=== PATIENT | female | born 1965 | race Caucasian/White ===

== ENCOUNTER 2016-09-04 09:49 | Emergency (ER) | payer OTHER ==
[~2016-09-04] VITALS: Ht 160 cm; Wt 81.8 kg
[~2016-09-04 09:49] MED LIST: ACET500C5 PO; ALBU18HF INHALATION; AMLO2.5T78 PO; AMO500 PO; ATEN100T PO; BUS5 PO; HYD25 PO; ISOS10TA2 PO; LANT3I SC; LINA5TAB PO; LOSA25TA47 PO; NAPR-260 PO; NOVO3I SC; OMEG1CAP55 PO; PANT40TA4 PO; PRAV80TA27 PO; SPIR25TA76 PO
[2016-09-04 10:22] VITALS: Ht 160 cm; Wt 81.8 kg
[2016-09-04] MEDS ORDERED: KETOROLAC 30 MG INJ IM STA (12:02)
[2016-09-04] MEDS ORDERED: PRED20TA PO (12:20)
[2016-09-04] MEDS ORDERED: IBUP-1542 PO (12:20)
--- NOTE | 2016-09-04 12:28 | ERD ---
ER Documentation Chief Complaint Date/Time DATE: 09/04/16 TIME: 12:24 Chief Complaint SORE THROAT HPI This is a 51-year-old female who presents to the emergency department today complaining of sore throat for the past 3 days. Patient states she was seen here last month and was given a prescription for antibiotics and took all of the pills. She also states that she was given a shot for pain. States that her symptoms did improve but now have returned. Dates she is able to eat for her sore throat is worse at night. Denies any fevers or cough. ROS All systems reviewed and are negative except as per history of present illness. Medications Home Meds Active Scripts Prednisone* (Prednisone*) 20 Mg Tab, 40 MG PO DAILY for 4 Days, TAB Prov:RAMA MARCH PA-C 09/04/16 Ibuprofen* (Motrin*) 600 Mg Tab, 600 MG PO Q6, #30 TAB Prov:RAMA MARCH PA-C 09/04/16 Naproxen* (Naprosyn*) 500 Mg Tablet, 500 MG PO BID Y for PAIN AND/OR INFLAMMATION, #30 TAB Prov:FIDE MIN MD 08/03/16 Acetaminophen* (Tylophen*) 500 Mg Capsule, 1 CAP PO Q6H Y for PAIN AND OR ELEVATED TEMP, #20 CAP Prov:ODELL NAVA PA-C 08/02/16 Amoxicillin* (Amoxicillin*) 500 Mg Cap, 500 MG PO TID for 10 Days, CAP Prov:ODELL NAVA PA-C 08/02/16 Hydrochlorothiazide* (Hydrochlorothiazide*) 25 Mg Tab, 25 MG PO DAILY@06 for 30 Days, TAB Prov:CHESTER,IRVING V. COY 04/29/16 Insulin Aspart* (Novolog Insulin Pen*) 100 Unit/Ml Soln, 26 UNIT SC WITH MEALS for 30 Days Prov:CHESTER,IRVING VLorna CESPEDES 04/29/16 Insulin Glargine* (Lantus*) 100 Unit/Ml Soln, 32 UNIT SC BID for 30 Days Prov:CHESTER,IRVING V. CLUTCH ASSEMBLER 04/29/16 Spironolactone* (Aldactone*) 25 Mg Tablet, 75 MG PO DAILY@06 for 30 Days, TAB Prov:CHESTER,IRVING VLorna CLUTCH ASSEMBLER 04/29/16 Losartan Potassium* (Cozaar*) 25 Mg Tablet, 100 MG PO DAILY for 30 Days, TAB Prov:IRVING CHESTER NP 04/29/16 Amlodipine Besylate* (Amlodipine Besylate*) 2.5 Mg Tablet, 5 MG PO DAILY, #30 TAB Prov:LOVE MURILLO NP 04/27/16 [place]-3/Dha/Epa/Fish Oil (FISH OIL EC 1,000 MG SOFTGEL) 1 Each Capsule.dr, 2000 MG PO BID for 30 Days Prov:LOVE MURILLO NP 04/27/16 Linagliptin (TRADJENTA) 5 Mg Tablet, 5 MG PO DAILY for 30 Days, TAB Prov:LOVE MURILLO NP 04/27/16 Pantoprazole* (Pantoprazole*) 40 Mg Tabec, 40 MG PO DAILY@06 for 14 Days, BOT Prov:YIN LERNER MD 10/05/15 Isosorbide Dinitrate* (Isordil*) 10 Mg Tab, 10 MG PO TID for 28 Days, TAB Prov:YIN LERNER MD 10/05/15 Albuterol Sulfate* (Ventolin HFA*) 18 Gm Hfa.aer.ad, 2 PUFF INHALATION Q4H, #1 INHALER Prov:LUKASZ PANTOJA 10/02/15 Reported Medications Pravastatin Sodium* (Pravastatin Sodium*) 80 Mg Tablet, 80 MG PO DAILY, #30 10/01/15 Buspirone Hcl* (Buspar*) 5 Mg Tab, 5 MG PO BID 10/01/15 Atenolol* (Atenolol*) 100 Mg Tablet, 100 MG PO DAILY 10/01/15 Allergies Allergies: Coded Allergies: aspirin (Verified Allergy, Unknown, 09/04/16) PMhx/Soc Anesthesia Reaction: No Hx Neurological Disorder: No Hx Respiratory Disorders: No Hx Cardiac Disorders: Yes (HTN;) Hx Psychiatric Problems: No Hx Miscellaneous Medical Probl: Yes (DM ) Hx Alcohol Use: No Hx Substance Use: No Hx Tobacco Use: No Smoking Status: Unknown if ever smoked Physical Exam Vitals Vital Signs Date Time Temp Pulse Resp B/P Pulse Ox O2 Delivery O2 Flow Rate FiO2 09/04/16 10:22 97.8 78 19 182/94 95 Physical Exam Const: Talking, no acute distress Head: Atraumatic Eyes: Normal Conjunctiva ENT: Ears TMs normal. Nose no drainage. Throat with mild erythema. No exudate. No evidence of abscess. Neck: Full range of motion..~ No meningismus. Resp: Clear to auscultation bilaterally Cardio: Regular rate and rhythm, no murmurs Abd: Soft, non tender, non distended. Normal bowel sounds Skin: No petechiae or rashes Back: No midline or flank tenderness Ext: No cyanosis, or edema Neur: Awake and alert Psych: Normal Mood and Affect Results 24 hrs Current Medications Medications (Trade) Dose Ordered Sig/Addie Route PRN Reason Start Time Stop Time Status Last Admin Dose Admin Ketorolac Tromethamine (Toradol) 30 mg ONCE STAT IM 09/04/16 12:02 09/04/16 12:03 DC 09/04/16 12:12 Procedures/MDM Txatrob-aerc-mao female who presents to the emergency department today complaining of a sore throat for the past 3 days. Patient was seen here on 08/02 and was treated with amoxicillin for possible strep pharyngitis. She returned the next day for continued pain and was given Toradol injection for pain at that time. Today on physical exam patient has no evidence of tonsillar exudate. I have lower suspicion for strep pharyngitis, peritonsillar abscess, retropharyngeal abscess. Patient is afebrile and otherwise well appearing. She is talkative in the exam room. She states she is able to eat. Patient was concerned because she has this pain that has returned. I did offer to give the patient pain medication here in the emergency department and she was requesting an injection stating that helps her much more than any pill. I did give the patient a Toradol injection. I have also explained to the patient that she would benefit from ENT specialist and that she should request referral from her primary care physician. I've given her a list of ENT specialist as patient states that she does have a physician at [facility]. Patient does have complaints of swelling and therefore I did give her a very short course of prednisone for home. Patient does take insulin for her diabetes but it appears to be well controlled at approximately 155 glucose readings daily. I've explained to the patient that she needs to check her blood sugar regularly while taking the prednisone and that if she has any significant increase that she would need to stop taking the prednisone immediately. Patient is in understanding and agreement with that. At this time the patient is stable for discharge and outpatient management. Patient should follow up with their PCP in the next 1-2 days. They may return to the emergency department sooner for any persistent or worsening of symptoms. Patient understood and agreed with the plan. Departure Diagnosis: Primary Impression: Sore throat Condition: Fair Patient Instructions: When You Have a Sore Throat Referrals: [facility] (PCP) BARRY ROBERTS MD, BRAIN RAMÍREZ,ISABELLA CRUM,AB ALEGRIA,CHRISSY WILLIS,KEEGAN ROQUE,MARIANNE ACLVILLO MD, MD,MARIO CHAVEZ,MARIANNE WHITAKER Additional Instructions: Call your primary care doctor TOMORROW for an appointment during the next 1-2 days for referral to ENT specialist.See the doctor sooner or return here if your condition worsens before your appointment time. Take Tylenol or Motrin for pain Take prednisone as prescribed. Check your blood sugar regularly and stopped taking medication if blood sugar increases significantly RAMA MARCH PA-C Sep 04, 2016 12:27
[2016-09-04 12:30] VITALS: BP 158/78
== END 2016-09-04 12:32 | disposition home or self-care (01) ==
LOC: FTE 09:49
DX: J02.9 Acute pharyngitis, unspecified (principal); I10 Essential (primary) hypertension; E11.9 Type 2 diabetes mellitus without complications; Z79.4 Long term (current) use of insulin
CPT/HCPCS: 96372; J1885; Z7502

== ENCOUNTER 2017-01-30 16:53 | Emergency (ER) | payer OTHER ==
[~2017-01-30] VITALS: Ht 157.5 cm; Wt 90.5 kg
[~2017-01-30 16:53] MED LIST changes: +IBUP-1542 PO; +LOSA25TA2 PO; -LOSA25TA47 PO; +PRED20TA PO; +SPIR25TA PO; -SPIR25TA76 PO
[2017-01-30 16:56] VITALS: Ht 157.5 cm; Wt 90.5 kg
[2017-01-30] MEDS ORDERED: FUROSEMIDE 40 MG INJ IV STA (19:09)
[2017-01-30 19:30] VITALS: TEMP 98.8
--- NOTE | 2017-01-30 19:46 | RADRPT ---
PROCEDURE: XR Chest. CLINICAL INDICATION: Chest pain. TECHNIQUE: Portable AP upright view of the chest was obtained. COMPARISON: 04/24/2016 FINDINGS: The cardiomediastinal silhouette is within normal limits. The lungs are clear. There is no evidenc e for pleural effusion, pneumothorax or pulmonary vascular congestion. The osseous structures are i ntact with no evidence for acute abnormality. RPTAT:HJJR IMPRESSION: No evidence for acute intrathoracic pathology or interval change from 04/24/2016. Physician Milind Date Time Electronically viewed and signed by Luis A Tomas Physician on 01/30/2017 19:45 JR/
[2017-01-30 19:59] LABS: ADD SCAN DIFF NO
[2017-01-30 20:03] LABS: BASOPHIL # 0.1 10^3/ul (0.0-0.1); BASOPHILS % 0.4 % (0.0-2.0); EOSINOPHILS # 0.2 10^3/ul (0.0-0.5); EOSINOPHILS % 1.8 % (0.0-7.0); HEMATOCRIT 36.2 % (37.0-47.0); HEMOGLOBIN 12.1 g/dl (12.0-16.0); LYMPHOCYTES # 4.2 10^3/ul (0.8-2.9); LYMPHOCYTES % 34.4 % (15.0-51.0); MEAN CORPUSCULAR HEMOGLOBIN 28.7 pg (29.0-33.0); MEAN CORPUSCULAR HGB CONC 33.4 g/dl (32.0-37.0); MEAN CORPUSCULAR VOLUME 85.8 fl (82.0-101.0); MEAN PLATELET VOLUME 12.8 fl (7.4-10.4); MONOCYTE # 0.5 10^3/ul (0.3-0.9); MONOCYTES % 4.3 % (0.0-11.0); NEUTROPHIL # 7.1 10^3/ul (1.6-7.5); NEUTROPHILS % 58.8 % (39.0-77.0); PLATELET COUNT 326 10^3/UL (140-415); RED BLOOD COUNT 4.22 10^6/ul (4.20-5.40); RED CELL DISTRIBUTION WIDTH 14.3 % (11.5-14.5); WHITE BLOOD COUNT 12.1 10^3/ul (4.8-10.8)
[2017-01-30 20:18] LABS: INR 0.9; PARTIAL THROMBOPLASTIN TIME 33.8 Sec (25.0-35.0); PROTIME 12.1 Sec (12.2-14.2); PT RATIO 0.9
[2017-01-30 20:25] LABS: ALANINE AMINOTRANSFERASE 34 IU/L (13-69); ALBUMIN 3.1 g/dl (3.3-4.9); ALBUMIN/GLOBULIN RATIO 1.06; ALKALINE PHOSPHATASE 117 IU/L (42-121); ANION GAP 8 (8-16); ASPARTATE AMINO TRANSFERASE 21 IU/L (15-46); BILIRUBIN,INDIRECT 0.1 mg/dl (0-1.1); BILIRUBIN,TOTAL 0.1 mg/dl (0.2-1.3); BLOOD UREA NITROGEN 43 mg/dl (7-20); CALCIUM 8.3 mg/dl (8.4-10.2); CARBON DIOXIDE 26 mmol/L (21-31); CHLORIDE 105 mmol/L (97-110); CREATININE 2.05 mg/dl (0.44-1.00); GLUCOSE 289 mg/dl (70-220); POTASSIUM 3.6 mmol/L (3.5-5.1); SODIUM 135 mmol/L (135-144)
--- NOTE | 2017-01-30 20:34 | ERD ---
ER Documentation Chief Complaint Date/Time DATE: 01/30/17 TIME: 20:31 Chief Complaint Complains of SOB and bilateral ankle swelling and weakness HPI 51-year-old female who presents the emergency room with bilateral ankle swelling. The patient describes at least 1-2 weeks of worsening swelling to the bilateral ankles. Her medications have been recently changed on Tuesday. She notes occasional shortness of breath but no chest pain, no pleuritic pain , no dyspnea on exertion, no PND. No fevers or chills, no back pain or flank pain. No recent surgery, immobilization or travel. ROS All systems reviewed and are negative except as per history of present illness. Medications Home Meds Active Scripts Prednisone* (Prednisone*) 20 Mg Tab, 40 MG PO DAILY for 4 Days, TAB Prov:RAMA MARCH PA-C 09/04/16 Ibuprofen* (Motrin*) 600 Mg Tab, 600 MG PO Q6, #30 TAB Prov:RAMA MARCH PA-C 09/04/16 Naproxen* (Naprosyn*) 500 Mg Tablet, 500 MG PO BID Y for PAIN AND/OR INFLAMMATION, #30 TAB Prov:FIDE MIN MD 08/03/16 Acetaminophen* (Tylophen*) 500 Mg Capsule, 1 CAP PO Q6H Y for PAIN AND OR ELEVATED TEMP, #20 CAP Prov:ODELL NAVA PA-C 08/02/16 Amoxicillin* (Amoxicillin*) 500 Mg Cap, 500 MG PO TID for 10 Days, CAP Prov:ODELL NAVA PA-C 08/02/16 Hydrochlorothiazide* (Hydrochlorothiazide*) 25 Mg Tab, 25 MG PO DAILY@06 for 30 Days, TAB Prov:CHESTER,IRVING Jalil CESPEDES 04/29/16 Insulin Aspart* (Novolog Insulin Pen*) 100 Unit/Ml Soln, 26 UNIT SC WITH MEALS for 30 Days Prov:CHESTER,IRVING VLorna CESPEDES 04/29/16 Insulin Glargine* (Lantus*) 100 Unit/Ml Soln, 32 UNIT SC BID for 30 Days Prov:CHESTER,IRVING VLorna CESPEDES 04/29/16 Spironolactone* (Aldactone*) 25 Mg Tablet, 75 MG PO DAILY@06 for 30 Days, TAB Prov:CHESTERIRVING NP 04/29/16 Losartan Potassium* (Cozaar*) 25 Mg Tablet, 100 MG PO DAILY for 30 Days, TAB Prov:IRVING CHESTER NP 04/29/16 Amlodipine Besylate* (Amlodipine Besylate*) 2.5 Mg Tablet, 5 MG PO DAILY, #30 TAB Prov:LOVE MURILLO NP 04/27/16 [place]-3/Dha/Epa/Fish Oil (FISH OIL EC 1,000 MG SOFTGEL) 1 Each Capsule.dr, 2000 MG PO BID for 30 Days Prov:LOVE MURILLO NP 04/27/16 Linagliptin (TRADJENTA) 5 Mg Tablet, 5 MG PO DAILY for 30 Days, TAB Prov:LOVE MURILLO NP 04/27/16 Pantoprazole* (Pantoprazole*) 40 Mg Tabec, 40 MG PO DAILY@06 for 14 Days, BOT Prov:YIN LERNER MD 10/05/15 Isosorbide Dinitrate* (Isordil*) 10 Mg Tab, 10 MG PO TID for 28 Days, TAB Prov:YIN LERNER MD 10/05/15 Albuterol Sulfate* (Ventolin HFA*) 18 Gm Hfa.aer.ad, 2 PUFF INHALATION Q4H, #1 INHALER Prov:LUKASZ PANTOJA 10/02/15 Reported Medications Pravastatin Sodium* (Pravastatin Sodium*) 80 Mg Tablet, 80 MG PO DAILY, #30 10/01/15 Buspirone Hcl* (Buspar*) 5 Mg Tab, 5 MG PO BID 10/01/15 Atenolol* (Atenolol*) 100 Mg Tablet, 100 MG PO DAILY 10/01/15 Allergies Allergies: Coded Allergies: aspirin (Verified Allergy, Unknown, 09/04/16) PMhx/Soc Anesthesia Reaction: No Hx Neurological Disorder: No Hx Respiratory Disorders: No Hx Cardiac Disorders: Yes (HTN;) Hx Psychiatric Problems: No Hx Miscellaneous Medical Probl: Yes (DM ) Hx Alcohol Use: No Hx Substance Use: No Hx Tobacco Use: No Smoking Status: Unknown if ever smoked FmHx Family History: No diabetes Physical Exam Vitals Vital Signs Date Time Temp Pulse Resp B/P Pulse Ox O2 Delivery O2 Flow Rate FiO2 01/30/17 19:44 Nasal Cannula 2.0 01/30/17 19:44 Nasal Cannula 2 01/30/17 19:30 98.8 78 20 171/108 100 Nasal Cannula 2.0 01/30/17 16:56 98.8 67 20 148/86 99 Physical Exam General: Well developed, well nourished, no acute distress Head: Normocephalic, atraumatic. Eyes: Pupils equally reactive, EOM intact ENT: Moist mucous membranes Neck: Supple, no lymphadenopathy Respiratory: Lungs clear bilaterally, no distress Cardiovascular: RRR, no murmurs, rubs, or gallops Abdominal: Soft, non-tender, non-distended, no peritoneal signs : Deferred MSK: Bilateral 1+ pedal edema, no unilateral swelling, 5/5 strength Neurologic: Alert and oriented, moving all extremities, normal speech, no focal weakness, no cerebellar signs Skin: No rash Psych: Normal mood Result Diagram: 01/30/17 1950 01/30/17 1950 Results 24 hrs Laboratory Tests Test 01/30/17 19:50 White Blood Count 12.110^3/ul Red Blood Count 4.2210^6/ul Hemoglobin 12.1g/dl Hematocrit 36.2% Mean Corpuscular Volume 85.8fl Mean Corpuscular Hemoglobin 28.7pg Mean Corpuscular Hemoglobin Concent 33.4g/dl Red Cell Distribution Width 14.3% Platelet Count 00870^3/UL Mean Platelet Volume 12.8fl Neutrophils % 58.8% Lymphocytes % 34.4% Monocytes % 4.3% Eosinophils % 1.8% Basophils % 0.4% Nucleated Red Blood Cells % 0.0/100WBC Neutrophils # 7.110^3/ul Lymphocytes # 4.210^3/ul Monocytes # 0.510^3/ul Eosinophils # 0.210^3/ul Basophils # 0.110^3/ul Nucleated Red Blood Cells # 0.010^3/ul Prothrombin Time 12.1Sec Prothrombin Time Ratio 0.9 INR International Normalized Ratio 0.90 Activated Partial Thromboplast Time 33.8Sec Sodium Level 135mmol/L Potassium Level 3.6mmol/L Chloride Level 105mmol/L Carbon Dioxide Level 26mmol/L Anion Gap 8 Blood Urea Nitrogen 43mg/dl Creatinine 2.05mg/dl Glucose Level 289mg/dl Calcium Level 8.3mg/dl Total Bilirubin 0.1mg/dl Direct Bilirubin 0.00mg/dl Indirect Bilirubin 0.1mg/dl Aspartate Amino Transf (AST/SGOT) 21IU/L Alanine Aminotransferase (ALT/SGPT) 34IU/L Alkaline Phosphatase 117IU/L Troponin I Pending B-Type Natriuretic Peptide Pending Total Protein 6.0g/dl Albumin 3.1g/dl Globulin 2.90g/dl Albumin/Globulin Ratio 1.06 Current Medications Medications (Trade) Dose Ordered Sig/Addie Route PRN Reason Start Time Stop Time Status Last Admin Dose Admin Furosemide (Lasix) 40 mg ONCE STAT IV 01/30/17 19:09 01/30/17 19:11 DC 01/30/17 19:37 Procedures/MDM EKG, MONITORS, & DIAGNOSTIC IMAGING: EKG: I reviewed and interpreted a 12-lead EKG. Rhythm: Normal sinus rhythm Ectopy: None Intervals: No abnormalities ST segments: No elevations or depressions T waves: No contiguous inversions Chest x-ray: I reviewed and interpreted a 1 view of the chest Mediastinum: No enlargement Cardiac silhouette: No cardiomegaly Airspace: Clear lung mchugh bilaterally without evidence of pneumothorax Bones: No evidence of fracture LAB INTERPRETATION: Mild renal insufficiency with a creatinine of 2 from 1 approximate 1 year ago. Troponin and BMP pending. MEDICAL DECISION MAKING The patient presents with 1 week of bilateral pedal edema. This is most consistent with likely peripheral edema, very low clinical concern for acute CHF , DVT. I do not believe the patient requires DVT. Patient will benefit from screening including basic blood work, chest x-ray, EKG troponin and BNP. Small dose of lasix given upon initial evaluation. Avoid further dosing given Cr value. The patient's troponin and BMP are pending. If negative I believe the patient is safe for outpatient management. The patient was informed that her creatinine is increased and likely the cause of her pedal edema. The patient requires close primary care follow-up. The patient's medications have been recently changed, consider changing back to original medications, monitoring of creatinine. Patient to return for any worsening symptoms. I kept the patient and/or family informed of laboratory and diagnostic imaging results throughout the emergency room course. DISPOSITION PLAN: Pending troponin and BNP, endorsed to Dr. Pantoja to follow-up if negative patient to be discharged We discussed follow up with the patient's primary care doctor within 24 to 48 hours as needed. We also discussed return to the emergency room for worsening symptoms or worsening condition. Outpatient referral: [None required] Departure Diagnosis: Primary Impression: Peripheral edema Additional Impression: Acute renal insufficiency Condition: Stable BEVERLY MOLINA MD Jan 30, 2017 20:34
[2017-01-30 20:36] LABS: B-TYPE NATRIURETIC PEPTIDE 1580 PG/ML (0-125)
[2017-01-30 20:37] LABS: TROPONIN-I < 0.012 ng/ml (0.00-0.12)
[2017-01-30 20:57] VITALS: BP 179/86; PULSE 73; RESP 18
== END 2017-01-30 20:59 | disposition home or self-care (01) ==
LOC: E/R 16:53
DX: R60.0 Localized edema (principal); N28.9 Disorder of kidney and ureter, unspecified; I10 Essential (primary) hypertension; E11.9 Type 2 diabetes mellitus without complications; Z79.4 Long term (current) use of insulin
CPT/HCPCS: 71010; 80053; 83880; 84484; 85025; 85610; 85730; 93005; 96374; J1940; Z7502

== ENCOUNTER 2017-07-13 15:55 | Emergency (ER) | payer OTHER ==
[~2017-07-13] VITALS: Ht 157.5 cm; Wt 76.0 kg
[~2017-07-13 15:55] MED LIST changes: -AMO500 PO; +AMOX500C2 PO; -HYD25 PO; +HYDR25TA6 PO
[2017-07-13 15:56] VITALS: Ht 157.5 cm; Wt 76.0 kg
[2017-07-13] MEDS ORDERED: KETOROLAC 30 MG INJ IM STA (16:59)
[2017-07-13] MEDS ORDERED: NAPR-260 PO (17:01)
[2017-07-13] MEDS ORDERED: BENZ100C70 PO (17:01)
--- NOTE | 2017-07-13 17:36 | ERD ---
ER Documentation Chief Complaint Chief Complaint st HPI 51-year-old female complaining of sore throat with runny nose and cough x 3 days. No fevers. No headaches. No vomiting. Has taken nyquil, khushboo seltzer and tea with no relief. ROS All systems reviewed and are negative except as per history of present illness. Medications Home Meds Active Scripts Benzonatate* (Tessalon Perle*) 100 Mg Capsule, 100 MG PO Q8H Y for COUGH, #30 CAP Prov:NIESHA HURST PA-C 07/13/17 Naproxen* (Naprosyn*) 500 Mg Tablet, 500 MG PO BID Y for PAIN AND/OR INFLAMMATION, #30 TAB Prov:NIESHA HURST PA-C 07/13/17 Prednisone* (Prednisone*) 20 Mg Tab, 40 MG PO DAILY for 4 Days, TAB Prov:RAMA MARCH PA-C 09/04/16 Ibuprofen* (Motrin*) 600 Mg Tab, 600 MG PO Q6, #30 TAB Prov:RAMA MARCH PA-C 09/04/16 Naproxen* (Naprosyn*) 500 Mg Tablet, 500 MG PO BID Y for PAIN AND/OR INFLAMMATION, #30 TAB Prov:FIDE MIN MD 08/03/16 Acetaminophen* (Tylophen*) 500 Mg Capsule, 1 CAP PO Q6H Y for PAIN AND OR ELEVATED TEMP, #20 CAP Prov:ODELL NAVA PA-C 08/02/16 Amoxicillin* (Amoxicillin*) 500 Mg Cap, 500 MG PO TID for 10 Days, CAP Prov:ODELL NAVA PA-C 08/02/16 Hydrochlorothiazide* (Hydrochlorothiazide*) 25 Mg Tab, 25 MG PO DAILY@06 for 30 Days, TAB Prov:CHESTERIRVING Jalil LINUX KERNEL ENGINEER 04/29/16 Insulin Aspart* (Novolog Insulin Pen*) 100 Unit/Ml Soln, 26 UNIT SC WITH MEALS for 30 Days Prov:CHESTERIRVING V. LINUX KERNEL ENGINEER 04/29/16 Insulin Glargine* (Lantus*) 100 Unit/Ml Soln, 32 UNIT SC BID for 30 Days Prov:CHESTERIRVINGELIZABETH Jimenes LINUX KERNEL ENGINEER 04/29/16 Spironolactone* (Aldactone*) 25 Mg Tablet, 75 MG PO DAILY@06 for 30 Days, TAB Prov:IRVING CHESTER V. LINUX KERNEL ENGINEER 04/29/16 Losartan Potassium* (Cozaar*) 25 Mg Tablet, 100 MG PO DAILY for 30 Days, TAB Prov:IRVING CHESTER V. LINUX KERNEL ENGINEER 04/29/16 Amlodipine Besylate* (Amlodipine Besylate*) 2.5 Mg Tablet, 5 MG PO DAILY, #30 TAB Prov:LOVE MURILLO NP 04/27/16 [place]-3/Dha/Epa/Fish Oil (FISH OIL EC 1,000 MG SOFTGEL) 1 Each Capsule.dr, 2000 MG PO BID for 30 Days Prov:LOVE MURILLO NP 04/27/16 Linagliptin (TRADJENTA) 5 Mg Tablet, 5 MG PO DAILY for 30 Days, TAB Prov:OLVE MURILLO NP 04/27/16 Pantoprazole* (Pantoprazole*) 40 Mg Tabec, 40 MG PO DAILY@06 for 14 Days, BOT Prov:YIN LERNER MD 10/05/15 Isosorbide Dinitrate* (Isordil*) 10 Mg Tab, 10 MG PO TID for 28 Days, TAB Prov:YIN LERNER MD 10/05/15 Albuterol Sulfate* (Ventolin HFA*) 18 Gm Hfa.aer.ad, 2 PUFF INHALATION Q4H, #1 INHALER Prov:LUKASZ PANTOJA 10/02/15 Reported Medications Pravastatin Sodium* (Pravastatin Sodium*) 80 Mg Tablet, 80 MG PO DAILY, #30 10/01/15 Buspirone Hcl* (Buspar*) 5 Mg Tab, 5 MG PO BID 10/01/15 Atenolol* (Atenolol*) 100 Mg Tablet, 100 MG PO DAILY 10/01/15 Allergies Allergies: Coded Allergies: aspirin (Verified Allergy, Unknown, 07/13/17) PMhx/Soc Anesthesia Reaction: No Hx Neurological Disorder: No Hx Respiratory Disorders: No Hx Cardiac Disorders: Yes (HTN;) Hx Psychiatric Problems: No Hx Miscellaneous Medical Probl: Yes (DM ) Hx Alcohol Use: No Hx Substance Use: No Hx Tobacco Use: No Physical Exam Vitals Vital Signs Date Time Temp Pulse Resp B/P Pulse Ox O2 Delivery O2 Flow Rate FiO2 07/13/17 15:56 97.6 89 18 160/89 99 Physical Exam GENERAL: The patient is well-appearing, well-nourished, in no acute distress HEENT: Atraumatic. Conjunctivae are pink. Pupils equal, round, and reactive to light. There is no scleral icterus. Tympanic membranes clear bilaterally. Oropharynx clear. No nystagmus or photophobia. NECK: C-spine is soft and supple. There is no meningismus. There is no cervical lymphadenopathy. CHEST: Clear to auscultation bilaterally. There are no rales, wheezes or rhonchi. HEART: Regular rate and rhythm. No murmurs, clicks, rubs or gallops. No S3 or S4. Results 24 hrs Current Medications Medications (Trade) Dose Ordered Sig/Addie Route PRN Reason Start Time Stop Time Status Last Admin Dose Admin Ketorolac Tromethamine (Toradol) 30 mg ONCE STAT IM 07/13/17 16:59 07/13/17 17:00 DC 07/13/17 17:08 Procedures/MDM ER Course: IM toradol given in ED MDM: 51 yr old female complaining of sore throat x 3 days. I have low suspicion for peritonsillar or retropharyngeal abscess. I have low suspicion for strep throat. Patient's exam is likely associated with viral URI. I do not feel that antibiotics are indicated at today's visit. I have low suspicion for pneumonia as patient's breath sounds are within normal limits. I have low suspicion for meningitis or sepsis. Patient is nontoxic-appearing. Patient will be discharged with supportive medications and told to follow-up with primary care within 1-2 days for close evaluation. Patient is told if symptoms change or worsen to return to the ER immediately. All questions answered at discharge. Departure Diagnosis: Primary Impression: Sore throat Condition: Stable Patient Instructions: When You Have a Sore Throat Referrals: [facility] (PCP) Additional Instructions: FOLLOW UP WITH YOUR PRIMARY CARE PHYSICIAN TOMORROW.Return to this facility if you are not improving as expected. NIESHA HURST PA-C Jul 13, 2017 17:36
== END 2017-07-13 17:37 | disposition home or self-care (01) ==
LOC: FTE 15:55
DX: J02.9 Acute pharyngitis, unspecified (principal); I10 Essential (primary) hypertension; E11.9 Type 2 diabetes mellitus without complications; Z79.4 Long term (current) use of insulin; Z79.84 Long term (current) use of oral hypoglycemic drugs
CPT/HCPCS: 96372; J1885; Z7502

== ENCOUNTER 2017-10-19 00:49 | Inpatient (IN) | END 2017-11-11 18:45 | disposition home health service (06) | DRG 673 ==

== ENCOUNTER 2017-11-14 18:23 | Emergency (ER) | END 2017-11-14 20:19 | disposition home or self-care (01) ==

== ENCOUNTER 2018-04-04 12:04 | Emergency (ER) | END 2018-04-04 15:13 | disposition home or self-care (01) ==

== ENCOUNTER 2019-01-11 14:30 | Emergency (ER) | payer MEDICARE, OTHER ==
[~2019-01-11] VITALS: Ht 160 cm; Wt 78.6 kg
[2019-01-11 14:30] VITALS: Ht 160 cm; Wt 78.6 kg
[~2019-01-11 14:30] MED LIST changes: -ACET500C5 PO; -ALBU18HF INHALATION; -AMLO2.5T78 PO; -AMOX500C2 PO; -ATEN100T PO; +ATOR-2 PO; -BUS5 PO; +CALC1TAB79 PO; +CARV6.2579 PO; +CLOP75TA27 PO; +HYDR-3671 PO; +HYDR-4011 PO; -HYDR25TA6 PO; -IBUP-1542 PO; +INSU100I12 SQ; +INSU300I SQ; -ISOS10TA2 PO; +KETO5DRO21 BOTH EYES; +LANT10002 PO; -LANT3I SC; -LINA5TAB PO; +LISI40TA3 PO; +LORA1TAB PO; +LOSA100T15 PO; -LOSA25TA2 PO; +METO5TAB65 PO; -NAPR-260 PO; -NOVO3I SC; +OMEG-158 PO; -OMEG1CAP55 PO; +ONDA4TAB8 PO; -PANT40TA4 PO; -PRAV80TA27 PO; -PRED20TA PO; +PRED5DRO20 BOTH EYES; +SENN-120 PO; -SPIR25TA PO
[2019-01-11] MEDS ORDERED: ONDANSETRON 4 MG INJ IV STA (14:42)
[2019-01-11] MEDS ORDERED: morphine 4 MG/ML VIAL IV STA (14:42)
[2019-01-11] MEDS ORDERED: SOD CHLORIDE 0.9% 500 ML IV STA (14:42)
[2019-01-11] MEDS ORDERED: HYDR100T25 PO (15:25)
[2019-01-11] MEDS ORDERED: CYCL5TAB PO (15:26)
[2019-01-11] MEDS ORDERED: LOSA100T15 PO (15:27)
[2019-01-11] MEDS ORDERED: INSU300I SQ (15:27)
[2019-01-11] MEDS ORDERED: GABA100C14 PO (15:27)
[2019-01-11] MEDS ORDERED: ZOLP5TAB7 PO (15:28)
[2019-01-11] MEDS ORDERED: INSU100I12 SQ (15:28)
[2019-01-11] MEDS ORDERED: ATOR-2 PO (15:29)
[2019-01-11] MEDS ORDERED: CARV12.579 PO (15:29)
[2019-01-11] MEDS ORDERED: CLOP75TA19 PO (15:30)
[2019-01-11] MEDS ORDERED: LISI10TA2 PO (15:30)
[2019-01-11] MEDS ORDERED: LABETALOL HCL 20MG INJ ONE (15:33)
[2019-01-11] MEDS ORDERED: LABETALOL HCL 20MG INJ IV ONE (16:00)
[2019-01-11] MEDS ORDERED: hydrALAzine 20 MG INJ ONE (16:03)
[2019-01-11] MEDS ORDERED: hydrALAzine 20 MG INJ IV ONE (16:30)
[2019-01-11] MEDS ORDERED: HYDR-4011 PO (17:21)
[2019-01-11] MEDS ORDERED: IBUP800T48 PO (17:21)
[2019-01-11] MEDS ORDERED: ONDA4TAB14 PO (17:21)
--- NOTE | 2019-01-11 17:24 | ERD ---
ER Documentation Chief Complaint Chief Complaint right sided abdominal pain x3days; unable to take bp meds has been hyperten HPI Very pleasant 53-year-old female history of end-stage renal disease on hemodialysis Tuesday, Tuesday with dialysis yesterday. Patient describes right upper quadrant abdominal pain for approximately 2 to 3 days. Patient states that she has had multiple episodes of nonbloody nonbilious emesis and has been throwing up her blood pressure medications. She denies any chest pain or pleuritic pain, no fevers or chills. Pain is noted to be moderate currently. ROS All systems reviewed and are negative except as per history of present illness. Medications Home Meds Active Scripts Ondansetron (Ondansetron Odt) 4 Mg Tab.rapdis, 4 MG PO Q6H PRN for NAUSEA AND/OR VOMITING, #10 TAB Prov:BEVERLY MOLINA MD 01/11/19 Hydrocodone/Acetaminophen ([place]esa 5-325 Tablet) 1 Each Tablet, 1 TAB PO Q6H PRN for PAIN, #7 TAB Prov:BEVERLY MOLINA MD 01/11/19 Ibuprofen* (Motrin*) 800 Mg Tab, 800 MG PO Q6H PRN for PAIN AND OR ELEVATED TEMP, #30 TAB Prov:BEVERLY MOLINA MD 01/11/19 Reported Medications Lisinopril* (Lisinopril*) 10 Mg Tablet, 10 MG PO DAILY, #30 TAB 01/11/19 Clopidogrel Bisulfate* (Clopidogrel Bisulfate*) 75 Mg Tablet, 75 MG PO DAILY, #30 TAB 01/11/19 Carvedilol* (Carvedilol*) 12.5 Mg Tablet, 12.5 MG PO BID, #60 TAB 01/11/19 Atorvastatin* (Atorvastatin*) 80 Mg Tablet, 80 MG PO QHS, #30 TAB 01/11/19 Insulin Lispro (Humalog Kwikpen U-100) 100 Unit/1 Ml Insuln.pen, 30 UNIT SQ WITH MEALS, EA 01/11/19 Zolpidem Tartrate* (Zolpidem Tartrate*) 5 Mg Tablet, 5 MG PO QHS PRN for INSOMNIA, #30 TAB 01/11/19 Gabapentin* (Gabapentin*) 100 Mg Capsule, 100 MG PO DAILY, #90 CAP 01/11/19 Losartan Potassium* (Losartan Potassium*) 100 Mg Tablet, 100 MG PO DAILY, TAB 01/11/19 Insulin Glargine,Hum.rec.anlog (Toujeo Solostar) 300 Unit/1 Ml Insuln.pen, 50 UNIT SQ QHS, EA 01/11/19 Cyclobenzaprine Hcl* (Cyclobenzaprine Hcl*) 5 Mg Tablet, 5 MG PO Q8H, #60 TAB 01/11/19 Hydralazine Hcl* (Hydralazine Hcl*) 100 Mg Tablet, 100 MG PO Q8, #90 TAB 01/11/19 Discontinued Reported Medications Ketorolac Tromethamine Oph (Ketorolac Tromethamine Oph) 0.5%-5 Ml Opht Drops, 1 DROP BOTH EYES QID, EA 04/04/18 Prednisolone Acetate* (Pred Forte*) 5 Ml Susp, 1 DROP BOTH EYES QID, EA 04/04/18 Insulin Glargine,Hum.rec.anlog (Toujeo Solostar) 300 Unit/1 Ml Insuln.pen, 56 UNIT SQ QAM, EA 04/04/18 Insulin Lispro (Humalog Kwikpen U-100) 100 Unit/1 Ml Insuln.pen, 30 UNIT SQ AC MEALS, EA 04/04/18 Ondansetron Hcl* (Zofran*) 4 Mg Tablet, 4 MG PO Q6H PRN for NAUSEA AND OR VOMITING, TAB 04/04/18 Lorazepam* (Lorazepam*) 1 Mg Tablet, 1 MG PO DAILY PRN for ANXIETY, #30 TAB 04/04/18 Lisinopril* (Lisinopril*) 40 Mg Tablet, 40 MG PO DAILY, #30 TAB 04/04/18 Sennosides* (Senna Lax*) 8.6 Mg Tablet, 1 TAB PO DAILY, TAB 04/04/18 Metolazone* (Metolazone*) 5 Mg Tablet, 5 MG PO DAILY, TAB 04/04/18 Losartan Potassium* (Losartan Potassium*) 100 Mg Tablet, 100 MG PO DAILY, TAB 04/04/18 Hydralazine Hcl* (Hydralazine Hcl*) 25 Mg Tab, 25 MG PO DAILY PRN for ELEVATED BLOOD PRESSURE, #60 TAB 04/04/18 Clopidogrel Bisulfate (Clopidogrel) 75 Mg Tablet, 75 MG PO DAILY, #30 TAB 04/04/18 Calcium Carbonate/Vitamin D3 (Oysco 500+D Tablet) 1 Each Tablet, 1 EACH PO BID, TAB 04/04/18 Atorvastatin* (Atorvastatin*) 80 Mg Tablet, 80 MG PO QHS, #30 TAB 04/04/18 Lanthanum Carbonate* (Fosrenol*) 1,000 Mg Tab.chew, 1000 MG PO TID, TAB.CHEW WITH MEALS 04/04/18 Carvedilol* (Carvedilol*) 6.25 Mg Tablet, 6.25 MG PO DAILY, #60 TAB 04/04/18 [place]-3/Dha/Epa/Fish Oil (FISH OIL 1,000 MG SOFTGEL) 1 Each Capsule, 1 EACH PO BID, CAP 04/04/18 Discontinued Scripts Hydrocodone/Acetaminophen ([place] 5-325 Tablet) 1 Each Tablet, 1 TAB PO Q6H PRN for PAIN, #7 TAB Prov:KOURTNEY MARTINEZ MD 04/04/18 Allergies Allergies: Coded Allergies: aspirin (Verified Allergy, Unknown, 01/11/19) PMhx/Soc History of Surgery: Yes (c/sx3, Cyst removal R breast,hysterectomy) Anesthesia Reaction: No Hx Neurological Disorder: No Hx Respiratory Disorders: No Hx Cardiac Disorders: Yes (HTN) Hx Psychiatric Problems: No Hx Miscellaneous Medical Probl: Yes (dialysis (MWF) last dialyzed 01/10) Hx Alcohol Use: No Hx Substance Use: No Hx Tobacco Use: No Smoking Status: Never smoker FmHx Family History: No diabetes Physical Exam Vitals Vital Signs Date Temp Pulse Resp B/P (MAP) Pulse Ox O2 O2 Flow FiO2 Time Delivery Rate 01/11/19 81 16 168/78 99 Nasal 16:26 (108) Cannula 01/11/19 72 16 219/96 99 Nasal 16:07 (137) Cannula 01/11/19 73 16 214/95 98 Nasal 15:42 (134) Cannula 01/11/19 81 16 246/107 99 Nasal 15:30 (153) Cannula 01/11/19 98.9 91 20 255/114 98 14:30 (161) Physical Exam General: Well developed, well nourished, no acute distress Head: Normocephalic, atraumatic. Eyes: Pupils equally reactive, EOM intact ENT: Moist mucous membranes Neck: Supple, no lymphadenopathy Respiratory: Lungs clear bilaterally, no distress Cardiovascular: RRR, no murmurs, rubs, or gallops Abdominal: Soft, mild tenderness of the right upper quadrant, negative Funez sign, no tenderness to McBurney's point : Deferred MSK: No edema, no unilateral swelling, 5/5 strength Neurologic: Alert and oriented, moving all extremities, normal speech, no focal weakness, no cerebellar signs Skin: No rash Psych: Normal mood Result Diagram: 01/11/19 1448 01/11/19 1448 Results 24 hrs Laboratory Tests Test 01/11/19 14:42 01/11/19 14:48 Blood Gas Specimen Source Blood venous Arterial Blood Date Drawn 01/11/2019 2:48:52 PM Arterial Blood Gas Puncture Site OTHER [place] Test N/A Venous Blood pH 7.454 Venous Blood pCO2 (Temp Corrected) 42.5 mmHG Venous Blood pO2 (Temp Corrected) 44.7 mmHG Venous Blood HCO3 29.1 mmol/L Venous Blood Oxygen Saturation 84.8 mmHG Venous Blood Base Excess 4.7 mmol/L Venous Blood Total Hemoglobin 13.0 g/dl Venous Blood Oxyhemoglobin 84.0 % Venous Blood Methemoglobin 0.2 % Blood Gas A-a O2 Differential 54.1 mmHg Carboxyhemoglobin 0.8 % Blood Gas Temperature 37.0 C Blood Gas Modality ROOM AIR FiO2 21.0 % Blood Gas Critical Value Read Back MOIZ Farias Blood Gas Notified Whom [facility] Blood Gas Notified Time 01/11/2019 2:53:33 PM White Blood Count 8.1 10^3/ul Red Blood Count 4.33 10^6/ul Hemoglobin 11.8 g/dl Hematocrit 37.3 % Mean Corpuscular Volume 86.1 fl Mean Corpuscular Hemoglobin 27.3 pg Mean Corpuscular Hemoglobin Concent 31.6 g/dl Red Cell Distribution Width 14.5 % Platelet Count 324 10^3/UL Mean Platelet Volume 10.8 fl Immature Granulocytes % 0.200 % Neutrophils % 69.4 % Lymphocytes % 22.3 % Monocytes % 5.8 % Eosinophils % 1.6 % Basophils % 0.7 % Nucleated Red Blood Cells % 0.0 /100WBC Immature Granulocytes # 0.020 10^3/ul Neutrophils # 5.6 10^3/ul Lymphocytes # 1.8 10^3/ul Monocytes # 0.5 10^3/ul Eosinophils # 0.1 10^3/ul Basophils # 0.1 10^3/ul Nucleated Red Blood Cells # 0.0 10^3/ul Sodium Level 136 mmol/L Potassium Level 3.6 mmol/L Chloride Level 99 mmol/L Carbon Dioxide Level 30 mmol/L Anion Gap 7 Blood Urea Nitrogen 48 mg/dl Creatinine 6.74 mg/dl Est Glomerular Filtrat Rate mL/min 6 mL/min Glucose Level 322 mg/dl Bedside Glucose 292 mg/dL Calcium Level 8.8 mg/dl Phosphorus Level 5.2 mg/dl Magnesium Level 2.7 mg/dl Total Bilirubin 0.8 mg/dl Direct Bilirubin 0.00 mg/dl Indirect Bilirubin 0.8 mg/dl Aspartate Amino Transf (AST/SGOT) 16 IU/L Alanine Aminotransferase (ALT/SGPT) 11 IU/L Alkaline Phosphatase 83 IU/L Troponin I < 0.012 ng/ml Total Protein 7.0 g/dl Albumin 3.7 g/dl Globulin 3.30 g/dl Albumin/Globulin Ratio 1.12 Lipase 208 U/L Serum HCG, Qualitative NEGATIVE Current Medications Medications Dose Sig/Addie Start Time Status Last (Trade) Ordered Route PRN Stop Time Admin Dose Reason Admin Sodium 500 ml @ Q1H STAT 01/11/19 DC 01/11/19 Chloride 500 mls/hr IV 14:42 14:54 01/11/19 15:41 Morphine 4 mg ONCE STAT 01/11/19 DC 01/11/19 Sulfate IV 14:42 14:53 (morphine) 01/11/19 14:44 Ondansetron 4 mg ONCE STAT 01/11/19 DC 01/11/19 HCl (Zofran IV 14:42 14:53 Inj) 01/11/19 14:44 Labetalol 20 mg ONCE ONCE 01/11/19 DC 01/11/19 HCl IV 16:00 15:35 (Labetalol) 01/11/19 16:01 Labetalol 20 mg STK-MED 01/11/19 DC HCl ONCE .ROUTE 15:33 (Labetalol) 01/11/19 15:34 Hydralazine 20 mg ONCE ONCE 01/11/19 DC 01/11/19 HCl IV 16:30 16:06 (Apresoline) 01/11/19 16:31 Hydralazine 20 mg STK-MED 01/11/19 DC HCl ONCE .ROUTE 16:03 (Apresoline) 01/11/19 16:04 Procedures/MDM EKG, MONITORS, & DIAGNOSTIC IMAGING: EKG: I reviewed and interpreted a 12-lead EKG. Rhythm: Normal sinus rhythm ST Changes: No contiguous ST segment elevations T waves: No contiguous T wave inversions Impression: No evidence of acute cardiac ischemia Ultrasound gallbladder: IMPRESSION: Cholelithiasis. Mild hepatomegaly. Slightly echogenic right kidney with no evidence of hydronephrosis. LAB INTERPRETATION: I reviewed the laboratory testing and it shows hyperglycemia without evidence of diabetic ketoacidosis MEDICAL DECISION MAKING: The patient presents to the emergency room with elevated blood sugar, elevated blood pressure and right upper quadrant abdominal pain. Clinical exam and history is likely consistent with biliary process. No signs or symptoms concerning for aortic process or cardiac etiology. Patient's hypertension is likely secondary to pain versus end-stage renal disease. Patient needs screening for diabetic ketoacidosis but low clinical concern for that process. ER COURSE: * Laboratory testing is reassuring, diabetic ketoacidosis has been ruled out. * Patient's blood pressure remained elevated despite pain control. The patient was given a dose of labetalol and a dose of hydralazine with control of her blood pressure. No evidence of endorgan dysfunction. No evidence of cardiac ischemia. * The patient's ultrasound shows evidence of gallstones. This is likely consistent with biliary colic. Pain is well controlled. The patient can be safely discharged with outpatient general surgery follow-up. Return precautions were discussed and understood. CONSULTATION: None DISPOSITION PLAN: The patient does not have an identifiable emergent medical condition that warrants inpatient hospitalization at this time. The patient is deemed safe for discharge with outpatient follow-up. We discussed follow up with the patient's primary care doctor within 24 to 48 hours as needed. We also discussed return to the emergency room for worsening symptoms or worsening condition. Outpatient referral: General surgery Discharge Medications: [place], Zofran, Motrin NARCOTIC MEDICATION: The patient has been prescribed a narcotic medication during this encounter. The patient has been warned about the use of narcotics. The patient should not drive or operate heavy machinery while taking this medication. The patient was also warned about the addictive properties of narcotic medications. Narcan prescription was NOT provided given the following criteria: 1. No more than 5 tablets of Mesa 10 mg or 10 tablets of Mesa 5 mg were prescribed. 2. Concomitant opiate and benzodiazepine prescriptions were not provided. 3. There is no obvious evidence of prior history of opiate abuse or overdose. Departure Diagnosis: Primary Impression: Biliary colic Additional Impressions: Hypertensive urgency End-stage renal disease on hemodialysis Hyperglycemia Condition: Stable Patient Instructions: Hyperglycemia (High Blood Sugar), Biliary Colic With Gallstone (Confirmed) Referrals: Jerome MANJARREZ SAMUEL MD Additional Instructions: Call your primary care doctor TOMORROW for an appointment during the next 1 WEEK.Tell the nursing secretary that you were referred from this facility.See the doctor sooner or return here if your condition worsens before your appointment time. BEVERLY MOLINA MD January 11, 2019 17:24
[2019-01-11 17:33] VITALS: BP 171/85; PULSE 82; RESP 20
== END 2019-01-11 17:56 | disposition home or self-care (01) ==
LOC: E/R 14:30
DX: K80.20 Calculus of gallbladder without cholecystitis without obstruction (principal); I12.0 Hypertensive chronic kidney disease with stage 5 chronic kidney disease or end stage renal disease; N18.6 End stage renal disease; I16.0 Hypertensive urgency; R73.9 Hyperglycemia, unspecified; Z79.01 Long term (current) use of anticoagulants; Z79.4 Long term (current) use of insulin; Z99.2 Dependence on renal dialysis
CPT/HCPCS: 36415; 76705; 80053; 82803; 82962; 83690; 83735; 84100; 84484; 84703; 85025; 93005; J0360; J2270; J2405; J7040; 96374; 96375